=== PATIENT | female | born 1990 | race Caucasian/White ===

== ENCOUNTER 2017-06-30 00:28 | Emergency (ER) | payer BC ==
[2017-06-30 00:35] VITALS: BP 144/87
[2017-06-30] MEDS ORDERED: PENICILLIN V POTASSIUM 500 MG TABLET PO ONE (00:44)
[2017-06-30] MEDS ORDERED: LIDOCAINE 2% VISCOUS SOLN 20 ML UDCUP PO ONE (00:44)
--- NOTE | 2017-06-30 00:49 | ER Document Report ---
ED Oral Problem - General Chief Complaint: Toothache Stated Complaint: TOOTHACHE Time Seen by Provider: 06/30/17 00:44 Mode of Arrival: Ambulatory Information source: Patient Notes: 26-year-old female presents to ED for pain and tooth 1 and 2 since September. She states one is been hurting all the time to was cracked and hurts when she eats anything sweet or cold. States she went to her dentist in September they gave her some antibiotics and she was supposed to have the one tooth pulled and when the tooth felt better she did not follow-up with the dentist. She states she smokes about 5 cigarettes a day because she is trying to quit she was smoking many more than that. TRAVEL OUTSIDE OF THE [place] IN LAST 30 DAYS: No - HPI Patient complains to provider of: Toothache Onset: Other - Chronic Onset: Gradual Quality of pain: Achy, Sharp, Throbbing Severity: Moderate Pain Level: 4 Associated symptoms: Toothache Worsened by: Cold - And suite Relieved by: Nothing Similar symptoms previously: Yes Recently seen / treated by doctor/dentist: No - Related Data Allergies/Adverse Reactions: No Known Allergies Allergy (Unverified 06/30/17 00:31) Past Medical History - General Information source: Patient - Social History Smoking Status: Current Every Day Smoker Cigarette use (# per day): Yes - 5 cigarettes a day Chew tobacco use (# tins/day): No Smoking Education Provided: Yes - 4 minutes Frequency of alcohol use: Rare Drug Abuse: None 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 denies: CAD, COPD, CVA, Hyperlipidemia, Hypertension Patient has suicidal ideation: No Patient has homicidal ideation: No - Past Medical History Cardiac Medical History: Reports: None Pulmonary Medical History: Reports: None EENT Medical History: Reports: None Neurological Medical History: Reports: None Endocrine Medical History: Reports: None Renal/ Medical History: Reports: None Malignancy Medical History: Reports: None GI Medical History: Reports: None Musculoskeltal Medical History: Reports Hx Musculoskeletal Deformity - Hip bursitis, Reports Hx Musculoskeletal Trauma - Fractured ankle Skin Medical History: Reports None Psychiatric Medical History: Reports: None Traumatic Medical History: Reports: Hx Fractures - Ankle fracture Infectious Medical History: Reports: None Past Surgical History: Reports: Hx Orthopedic Surgery - ORIF of ankle Review of Systems - Review of Systems Constitutional: No symptoms reported EENT: Mouth pain, Dental problem Cardiovascular: No symptoms reported Respiratory: No symptoms reported Gastrointestinal: No symptoms reported Genitourinary: No symptoms reported Female Genitourinary: No symptoms reported Musculoskeletal: No symptoms reported Skin: No symptoms reported Hematologic/Lymphatic: No symptoms reported Neurological/Psychological: No symptoms reported -: Yes All other systems reviewed and negative Physical Exam - Vital signs Vitals: Temp Pulse Resp BP Pulse Ox 97.8 F 76 18 144/87 H 98 06/30/17 00:33 06/30/17 00:33 06/30/17 00:33 06/30/17 00:33 06/30/17 00:33 Interpretation: Normal - General General appearance: Appears well, Alert - HEENT Head: Normocephalic, Atraumatic Eyes: Normal Pupils: PERRL Ears: Normal External canal: Normal Tympanic membrane: Normal Sinus: Normal Nasal: Normal Mouth/Lips: Caries - Redness and swelling surrounding the tooth #1 and 2 Mucous membranes: Normal Pharynx: Normal Neck: Normal - Respiratory Respiratory status: No respiratory distress Chest status: Nontender Breath sounds: Normal Chest palpation: Normal - Cardiovascular Rhythm: Regular Heart sounds: Normal auscultation Murmur: No - Abdominal Inspection: Normal Distension: No distension Bowel sounds: Normal Tenderness: Nontender Organomegaly: No organomegaly - Back Back: Normal, Nontender - Extremities General upper extremity: Normal inspection, Nontender, Normal color, Normal ROM , Normal temperature General lower extremity: Normal inspection, Nontender, Normal color, Normal ROM , Normal temperature, Normal weight bearing. No: Caridad's sign - Neurological Neuro grossly intact: Yes Cognition: Normal Orientation: AAOx4 Lydia Coma Scale Eye Opening: Spontaneous Sargeant Coma Scale Verbal: Oriented Sargeant Coma Scale Motor: Obeys Commands Lydia Coma Scale Total: 15 Speech: Normal Motor strength normal: LUE, RUE, LLE, RLE Sensory: Normal - Psychological Associated symptoms: Normal affect, Normal mood - Skin Skin Temperature: Warm Skin Moisture: Dry Skin Color: Normal Course - Re-evaluation Re-evalutation: 06/30/17 00:53 Patient was treated with Penicillin VK and viscous lidocaine for her dental pain tooth #1 and 2. Patient was instructed to please follow-up with the dentist as she was instructed to before and have the tooth definitively treated. Patient instructed that antibiotics are just a stopgap until she can have the tooth treated. She was also instructed on how to use her viscous lidocaine for her dental pain. - Vital Signs Vital signs: Temp Pulse Resp BP Pulse Ox 97.8 F 76 18 144/87 H 98 06/30/17 00:33 06/30/17 00:33 06/30/17 00:33 06/30/17 00:33 06/30/17 00:33 Discharge - Discharge Clinical Impression: Pain due to dental caries Condition: Stable Disposition: HOME, SELF-CARE Instructions: Family Physicians / Practices Additional Instructions: TOOTHACHE: Your pain is due to dental decay. The tooth must be repaired in order for you to feel better. You will, therefore, be referred to a dentist. We do not have dentists on the staff at [facility]. Severe swelling or drainage around a tooth usually means a dental abscess. This also requires evaluation and treatment by the dentist, but antibiotics may be prescribed while awaiting dental treatment. You should be rechecked immediately if you develop major swelling of the face, increasing pain, a lump in the jaw or gums, headache, difficulty swallowing, or fever. You have been given a syringe of viscous lidocaine for your dental pain. Place a small amount of the lidocaine on your finger and rub it to the gums where the pain is. You can do this every 2-3 hours. Please be aware that this can numb your tongue also and do not bite her tongue. Do not eat or drink within at least 30 minutes of using your lidocaine. PENICILLIN V K: You have been given a prescription for Penicillin VK. Your physician has determined that this is the best antibiotic for your condition. Pen VK can be taken with meals, however more of the antibiotic gets into the bloodstream if it's taken on an empty stomach. Penicillin usually has no side effects. However, allergy to penicillins is common. If you have had an allergic reaction to any drug of the penicillin family, you should never take any other penicillin. Notify your doctor at once if you develop hives, itching, swelling, faintness, or shortness of breath. FOLLOW-UP CARE: You have been referred for follow-up care to the dentists listed below. Call the dentists office for an appointment as you were instructed or within the next two days. If you experience worsening or a significant change in your symptoms, notify the physician immediately or return to the Emergency Department at any time for re-evaluation. [facility] [address] [place], [place] mornings, by appointment [facility] [address] [place] [address] [facility] [address] [facility] [address] [facility] [address] [facility] [email or web address] [address] [place] [address] Friday- 8:00am to 5:00 pm Will see patients from other [facility]. Charges based on income and family size and accepts Medicare, Medicaid, and Insurances Will pull molars [facility] Student [facility] [address] Hours of Operation 8:00 am - 4:30 pm weekdays The following dental offices accept Medicaid: [facility] Dr. Nieto Dr. Dukes Dr. Ruby Dr. Hahn Alberto Louis Lutsavage, and Mike oral surgery Dr. Licea ([place]) Dr. Gautam ([place]) [facility] Drs. Davidson and Gideon ([place]) Dr. Mcfarland ([place]) [facility] Dr. Engel ([place]) Drs. Arcos Scholar ([place]) Medicaid Care Line Prescriptions: Penicillin V Potassium [Penicillin Vk 500 mg Tablet] 500 mg PO BID #20 tablet Forms: Elevated Blood Pressure, Smoking Cessation Education, Return to Work
== END 2017-06-30 01:03 | disposition home or self-care (01) ==
LOC: ER 00:28
DX: K02.9 Dental caries, unspecified (principal); K08.89 Other specified disorders of teeth and supporting structures; F17.210 Nicotine dependence, cigarettes, uncomplicated
CPT/HCPCS: 99282; J3490